=== PATIENT | female | born 1945 | race Two or more races ===

== ENCOUNTER 2020-10-22 03:14 | Inpatient (IN) | payer BC, OTHER ==
[~2020-10-22] VITALS: Ht 162.6 cm; Wt 58.5 kg
--- NOTE | 2020-10-22 03:21 | NUR ---
PT AAOX4. BIBRA 86 FROM HOME C/O L UPPRER BACK PAIN X1 DAY +DIFFUSED CP X4 DAYS. PT PLACED IN BED 3 ON RCP AND PULSE OX. AWAITING MD FOR EVAL AND ORDERS.
--- NOTE | 2020-10-22 03:23 | NUR ---
TELEVISION NEWS PHOTOGRAPHER AT BEDSIDE
--- NOTE | 2020-10-22 03:25 | NUR ---
EMT AT BEDSIDE FOR EKG
[2020-10-22 03:33] LABS: BASOPHILS # (AUTO) 0.1 /CMM (0.0-0.2); BASOPHILS % (AUTO) 0.8 % (0.0-2.0); HEMATOCRIT 43 % (33-45); HEMOGLOBIN 14.5 g/dL (11.5-14.8); LYMPHOCYTES # (AUTO) 3.5 /CMM (0.8-4.8); LYMPHOCYTES % (AUTO) 50.1 % (20.0-44.0); MEAN CORPUSCULAR HGB CONC 34 g/dl (31.0-36.0); MEAN CORPUSCULAR VOLUME 90 fL (82-100); MONOCYTES # (AUTO) 0.6 /CMM (0.1-1.30); MONOCYTES % (AUTO) 8.7 % (2.0-12.0); NEUTROPHILS # (AUTO) 2.6 /CMM (1.8-8.9); NEUTROPHILS % (AUTO) 37.4 % (43.0-81.0); PLATELET COUNT (AUTO) 234 /CMM (150-450); RED BLOOD CELL COUNT(AUTO) 4.71 MIL/uL (4.0-5.2); WHITE BLOOD COUNT (AUTO) 7.1 K/uL (4.3-11.0)
[2020-10-22 03:41] LABS: CALCIUM, SERUM 9.7 mg/dL (8.5-10.1); CARBON DIOXIDE 28 mmol/L (21-32); CHLORIDE 102 mmol/L (98-107); CREATININE 0.9 mg/dL (0.6-1.3); GLUCOSE 107 mg/dL (74-106); POTASSIUM 3.6 mmol/L (3.5-5.1); SODIUM SERUM 137 mmol/L (136-145); UREA NITROGEN, BLOOD 15 mg/dL (7-18)
--- NOTE | 2020-10-22 03:44 | NUR ---
BEDSIDE CHEST X-RAY COMPLETED.
--- NOTE | 2020-10-22 06:17 | NUR ---
REPORT GIVEN TO FADY WALKER.
[2020-10-22] MEDS ORDERED: THYR60TA2 PO (06:20)
[2020-10-22 06:30] VITALS: BP 139/70
[2020-10-22] MEDS ORDERED: MORPHINE SULFATE INJ 2 MG/ML DISP.SYRIN IV PRN (06:30)
[2020-10-22] MEDS ORDERED: DOCUSATE SODIUM 100 MG CAPSULE PO PRN (06:30)
[2020-10-22] MEDS ORDERED: MAG HYDROX/AL HYDROX/SIMETH 30 ML UDC PO PRN (06:30)
[2020-10-22] MEDS ORDERED: ACETAMINOPHEN 325 MG TABLET PO PRN (06:30)
[2020-10-22] MEDS ORDERED: ONDANSETRON HCL/PF 4 MG/2 ML VIAL IVP PRN (06:30)
[2020-10-22] MEDS ORDERED: NITROGLYCERIN 0.4 MG/TAB BOTTLE SL PRN ×2 (06:30→10:30)
--- NOTE | 2020-10-22 06:30 | NUR ---
APPLICATIONS SPECIALISTCOMMERCIAL ENGINEER/ CLOSING NOTE RECEIVED PATIENT VIA GURNEY. A/OX4. TOLERATING ROOM AIR. RESPIRATIONS ARE EVEN AND UNLABORED. NO S/S SOB NOTED. NO C/O PAIN AT THIS TIME. EXTERNAL TELE MONITOR READS SINUS RHYTHM WITH BBB HR 80. IN NO APPARENT DISTRESS. IV ACCESS IN RFA#18 PATENT AND SALINE LOCKED. SALES HOST OBTAINED VITAL SIGNS, PLACED TELE MONITOR AND COMPLETED BELONGING LIST. INITIAL PHYSICAL ASSESSMENT COMPLETED AT THIS TIME. SKIN ASSESSMENT CONDUCTED, SKIN INTACT. BED IS LOW AND LOCKED, HOB ELEVATED IN SEMI FOWLERS, SIDE RAILS UP X2, CALL LIGHT WITHIN REACH. EXPLAINED USE. WILL ENDORSE TO ONCOMING SHIFT.
--- NOTE | 2020-10-22 06:34 | NUR ---
PATIENT TRANSFERRED TO ROOM 310 VIA STRETCHER.
--- NOTE | 2020-10-22 07:32 | NUR ---
CIVIL RIGHTS ATTORNEY OPENING NOTE PT RECEIVED IN BED, RESTING, AROUSABLE AND RESPONSIVE. PT IS A/O X 4 WITH NO C/O PAIN AT THIS TIME. PT ON ROOM AIR WITH NO S/SX SOB OR RESPIRATORY DISTRESS. PT'S TELE MONITOR SHOWS NSR WITH BBB IN 80'S, NO S/SX OF CARDIAC DISTRESS NOTED. PT HAS AN IV ACCESS ON THE RIGHT FOREARM G#18, PATENT, INTACT AND FLUSHING WELL WITH NO S/SX OF IRRITATION, INFECTION OR INFILTRATION. SAFETY MEASURES IN PLACE: BED IN LOWEST, LOCKED POSITION WITH UPPER SIDE RAILS UP X2. CALL LIGHT PLACED WITHIN REACH. WILL CONTINUE TO MONITOR.
[2020-10-22 08:00] VITALS: BP 134/72
[2020-10-22] MEDS ORDERED: ATORVASTATIN 10 MG TABLET PO SCH (09:00)
[2020-10-22] MEDS ORDERED: ASPIRIN 81 MG TAB.CHEW PO SCH (09:00)
[2020-10-22] MEDS ORDERED: ENOXAPARIN SODIUM 40 MG/0.4 ML DISP.SYRIN SQ SCH (09:00)
[2020-10-22] MEDS ORDERED: NITROGLYCERIN 0.4 MG/TAB BOTTLE ONE (09:20)
[2020-10-22] MEDS ORDERED: METOPROLOL TARTRATE INJ 5 MG/5 ML AMPUL ONE ×4 (09:20→10:46)
[2020-10-22] MEDS ORDERED: IOHEXOL-350 100 ML VIAL IV ONE (09:20)
[2020-10-22] MEDS ORDERED: IV NS 0.9% 250 ML IV ONE (09:20)
[2020-10-22] MEDS ORDERED: CT SWABBABLE VALVE TRANS SET 1 EA INFUS.SET MC ONE (09:20)
[2020-10-22] MEDS: METOPROLOL TARTRATE INJ 5 MG/5 ML AMPUL IVP PRN ×7 (10:12→10:42)
[2020-10-22] MEDS: METOPROLOL TARTRATE 50 MG TABLET PO SCH ×2 (11:36→17:42)
--- NOTE | 2020-10-22 15:02 | NUR ---
RN NOTE RESULTS OF CTCA CAME OUT, INFORMED OF RESULTS TO DR. HERNANDEZ WITH ORDER TO D/C PATIENT. [employer] OPERATIONS SUPERINTENDENT YOU NICK ON UNIT AND MADE AWARE. NO NEW ORDERS MADE AT THIS TIME. WILL CONTINUE TO MONITOR.
[2020-10-22] MEDS ORDERED: METO50TA16 PO (15:23)
[2020-10-22] MEDS ORDERED: ATOR10TA PO (15:23)
[2020-10-22 17:42] VITALS: BP 132/72
--- NOTE | 2020-10-22 18:47 | NUR ---
CODE ENFORCEMENT INSPECTORSENIOR TELECOMMUNICATIONS TECHNICIAN NOTE PT OK TO D/C, REJECT OPENER AND FILLER YOU NICK ON UNIT AND MADE AWARE. PT EDUCATED ON CONDITION AND MD PRESCRIPTIONS, VERBALIZES UNDERSTANDING. ALL BELONGINGS ACCOUNTED FOR AND SIGNED FOR. NO SKIN ISSUES. IV ACCESS REMOVED, PRESSURE DRESSING APPLIED TO SITE. NAME ARM BAND REMOVED. DISCHARGE INSTRUCTIONS GIVEN TO PT, VERBALIZED UNDERSTANDING. INSTRUCTED TO FOLLOW UP WITH PCP IN 1-2 WEEKS. PT DISCHARGED HOME IN STABLE CONDITION WITH NO C/O PAIN. PT LEFT UNIT AT 17:55, AMBULATING WITH STEADY GATE. PICKED UP WITH FRIEND INSTEAD OF DAUGHTER IN [place]. CHARGE NURSE MADE AWARE OF DISCHARGE.
[2020-10-23] MEDS ORDERED: PANTOPRAZOLE 40 MG TABLET.DR PO SCH (07:30)
== END 2020-10-22 18:00 | disposition home or self-care (01) | DRG 563 ==
LOC: ER 03:16 → TELE 05:45
PROVIDERS: ADMIT Nurse Practitioner Family; ATTEND Nurse Practitioner Family
DX: S29.011A Strain of muscle and tendon of front wall of thorax, initial encounter (principal); E03.9 Hypothyroidism, unspecified; I10 Essential (primary) hypertension; I44.7 Left bundle-branch block, unspecified; S39.012A Strain of muscle, fascia and tendon of lower back, initial encounter; X58.XXXA Exposure to other specified factors, initial encounter; Y92.009 Unspecified place in unspecified non-institutional (private) residence as the place of occurrence of the external cause
CPT/HCPCS: 36415; 71045-TC; 75574; 80048-TC; 84484-TC; 85025-TC; 87081-TC; 93307-TC; C9803; G0378; J1650; J3490; J7050; Q9967